=== PATIENT | male | born 1990 | race Caucasian/White ===

== ENCOUNTER 2023-01-18 20:30 | Emergency (ER) | payer OTHER, SELFPAY ==
[2023-01-18 20:40] VITALS: BP 138/88; PULSE 60; RESP 16; TEMP 36.9; O2SAT 97; BMI 28.8
--- NOTE | 2023-01-18 22:05 | ED_ITS ---
HPI - Animal Bite General Chief Complaint: Animal Bite Stated Complaint: Poss rabies exposure Time Seen by Provider: 01/18/23 20:36 Source: patient Mode of arrival: Ambulatory History of Present Illness HPI narrative: 33-year-old male nonsmoker presents with his significant other and a chief complaint of concern about possible rabies exposure. He was sleeping at home and woke to a bat flying around his room. He does not know if it bit him or not. He states that he put on protective clothing and was able to get the bat out of the house but in his reading saw that he may need rabies shots presents here for evaluation. He states that he is never had a rabies series before. He is otherwise well and free of complaint Related Data Allergies Allergy/AdvReac Type Severity Reaction Status Date / Time No Known Drug Allergies Allergy Verified 01/19/23 00:19 Review of Systems Review of Systems Narrative: GENERAL: Denies chills, fatigue, malaise, fever, sweats. HEENT: Denies sinus pain, ear pain, sore throat, difficulty swallowing, dizziness. RESPIRATORY: Denies dyspnea, cough, wheezing, hemoptysis, sputum. CARDIOVASCULAR: Denies chest pain, palpitations, orthopnea, edema, GASTROINTESTINAL: Denies nausea, vomiting, abdominal pain, diarrhea, constipation, melena. : Denies dysuria, frequency, incontinence, hematuria, urinary retention. MUSCULOSKELETAL: denies weakness, joint pain, or bony pain SKIN: Denies rash, skin lesions, or other NEUROLOGIC: Denies weakness, headache, numbness, change in speech, confusion, seizures, incoordination. PSYCHIATRIC: No concerning psychosocial issues. 12 point review of systems is negative except for those stated above Patient History Social History Smoking Status: Never smoker Smoking Status: Never smoker alcohol intake frequency: a few times a week Substance Use Type: does not use Exam Narrative Exam Narrative: GEN: AOx3 and in no obvious distress, slightly anxious EYES: Pupils are equal, round, and reactive to light and accommodation. Extraoccular muscles are intact bilaterally. There is no subconjunctival hemorrhage or exudate. CHEST: Lungs are clear to auscultation bilaterally and free of wheezes, rales, or rhonchi. Heart rate is regular rhythm, there are no murmurs, clicks, rubs, or gallops. There is no chest wall tenderness. ABD: Abdomen is soft and nontender. There is no guarding or rebound. Bowel sounds are normal in all 4 quadrants. There is no mass or organomegaly. EXT: Full painless ROM of all extremities with no loss of sensation or strength. SKIN: Warm, pink, and dry. No erythema or rash Initial Vital Signs Initial Vital Signs: Vital Signs Temperature 98.5 F 01/18/23 20:40 Pulse Rate 60 01/18/23 20:40 Respiratory Rate 16 01/18/23 20:40 Blood Pressure 138/88 01/18/23 20:40 Pulse Oximetry 97 01/18/23 20:40 Oxygen Delivery Method Room Air 01/18/23 20:40 Course Orders Ordered: Discontinued Medications Rabies Immune Globulin (Rabies Immune Globulin 300 Unit/Ml 1ml Vial) 1,724 unit 20 unit/kg (1724 unit) IM NOW ONE Stop: 01/18/23 23:35 Last Admin: 01/19/23 00:24 Dose: 1,724 unit Documented By: AP Rabies Vaccine (Rabies Vaccine (Rabavert) 2.5 Units Syringe) 2.5 units IM .ONCE ONE Stop: 01/18/23 23:35 Last Admin: 01/19/23 00:20 Dose: 2.5 units Documented By: AP Vital Signs Vital signs: Vital Signs - 8 hr 01/19/23 00:40 Pulse Rate 77 Respiratory Rate 18 Blood Pressure 126/76 Pulse Oximetry 100 Oxygen Delivery Method Room Air MDM - Animal Bite MDM Narrative Medical decision making narrative: [33] year old patient presents with exposure to bat Multiple etiologies for patient's symptoms considered including, but not limited to: [Possible rabies exposure] Primary Historian: patient Patient's history and physical exam are reassuring, we did discuss current recommendations to treat for possible rabies exposure based on his description of a fence. He is given the immunoglobulin as well as 1st vaccine tonight Patient's symptoms improved over duration of stay with above-stated therapies. Findings and discharge diagnosis discussed with patient/family followed by verbalization of understanding Return precautions discussed with patient/family whom verbalize understanding of diagnosis and plan Discharge Plan Departure Patient Disposition: Home Clinical Impression: Rabies contact Instructions: DI for Rabies Vaccine Activity Restrictions/Additional Instructions: *You have been diagnosed with [ possible rabies exposure. You have had Rabies Immunie Globulin and 1st Rabies Vaccine tonight *What to do: *As we discussed you will need additional Rabies Vaccines on day 3, 7, 14 Shot #2 - January 22 Shot #3 - January 26 Shot #4 - February 02 *If you do not have a primary care provider please contact the [facility] Resource line at [phone]. They will ask some questions about your medical history and help get you set up with a doctor in the community. *Return to Emergency Department if you should have any new, worsening or concerning symptoms, such as [fever greater than 101 F, shaking chills, worsenin g pain, persistent vomiting or other bothersome symptoms] Stand Alone Forms: Patient Portal/API
[2023-01-18 22:33] VITALS: BP 146/73; PULSE 82; RESP 20; O2SAT 96
[2023-01-19] MEDS: RABIES VACCINE (RABAVERT) 2.5 UNITS SYRINGE IM (00:20)
[2023-01-19] MEDS: RABIES IMMUNE GLOBULIN 300 UNIT/ML 1mL VIAL 1724 UNIT IM (00:24)
[2023-01-19 00:40] VITALS: BP 126/76; PULSE 77; RESP 18; O2SAT 100
--- NOTE | 2023-01-28 17:16 | PC.NURSE ---
Faxed provider report to [facility] for continuance of care: [phone].
== END 2023-01-19 00:55 | disposition home or self-care (01) ==
PROVIDERS: Emergency Provider Emergency Medicine
DX: Z20.3 Contact with and (suspected) exposure to rabies (principal); Z23 Encounter for immunization
CPT/HCPCS: 90375; 90471; 90675; 96372; 99283